=== PATIENT | female | born 1960 | race Caucasian/White ===

== ENCOUNTER 2016-08-03 14:10 | Emergency (ER) | payer OTHER ==
--- NOTE | 2016-08-03 16:23 | ED NURSING NOTES ---
Clinical Report - Nurses [place] [address] [place] [address] 08/03/2016 14:15 Patient: EDUARDO OLIVEIRA TRIAGE Triage time 14:30. Acuity: LEVEL 3. Chief Complaint: FATIGUE, HEADACHE and JOINT PAIN. Alert. No acute distress. MICHAEL COMA SCORE: [place] Coma Scale: 15- eyes open spontaneously (4); best verbal response- oriented x 4 (5); best motor response- obeys commands (6). --14:40 Nuzhat Mendoza R.N. 14:30 08/03/16. BP: 144/70. HR: 65. RR: 18. O2 saturation: 99% on room air. Temp: 98 F (oral). Pain level now: 0/10. --14:40 Nuzhat Mendoza R.N. Weight: 105.2 kg stated. Height/Length: 66 inches Per Patient. BMI: 37.5. --14:37 Nuzhat Mendoza R.N. Medications Pantoprazole Sodium Oral 20 mg, daily. --14:38 Nuzhat Mendoza R.N. ASA Oral 81 mg, daily. --14:39 Nuzhat Mendoza R.N. Sucralfate Oral 1 gm, 4x a day. --14:39 Nuzhat Mednoza R.N. Medication/allergy information source: the patient's pill bottles. --14:40 Nuzhat Mendoza R.N. Allergies No Known Drug Allergy. --14:32 Nuzhat Mendoza R.N. History Arrived by private vehicle. Historian: patient and family. Accompanied by family. Primary physician (Sneha - in [place]). Onset. (headache - about 1 week; rash - about 1 1/2 weeks). SOCIAL HX: Smoker- current status unknown (no). Occasional alcohol use. History of drug use: marijuana. FALL RISK ASSESSMENT: Fall risk assessment completed. No fall risk identified. FUNCTIONAL ASSESSMENT: Functional assessment performed: requires assistance with the activities of daily living. LEARNING NEEDS ASSESSMENT: A learning needs assessment was performed. Factors affecting the patient's ability to learn include cognitive limitations. --14:40 Nuzhat Mendoza R.N. PROBLEMS: Gastroesophageal Reflux Disease. Bronchitis. Bipolar Disorder. Anxiety Reaction. --14:35 Nuzhat Mendoza R.N. ADDITIONAL SURGERIES: . Tubal Ligation. --14:35 Nuzhat Mendoza R.N. Assessment GENERAL / NEURO / PSYCH: Alert. Oriented X 4. Appears in no acute distress. Patient appears calm and cooperative. RESPIRATORY: Respirations not labored. SKIN: Skin is warm and dry. Generalized skin rash. --14:40 Nuzhat Mendoza R.N. Interventions ID band on patient. To treatment room. --14:40 Nuzhat Mendoza R.N. PHYSICAL ASSESSMENT 14:43 08/03/16. Ambulatory to room. Patient gowned. GENERAL / NEURO / PSYCH: Alert. Appears in no acute distress. RESPIRATORY: Respirations not labored. SKIN: Skin is warm and dry. Generalized skin rash. --14:43 Nuzhat Mendoza R.N. NURSING PROGRESS NOTES 14:43 sister at bedside. Patient gowned. Head of bed elevated. Call light placed in reach. Side rails up x 1. Bed placed in lowest position. Brakes of bed on. --14:44 Nuzhat Mendoza R.N. 15:31 08/03/2016 Two (2) unsuccessful IV access attempts. --15:36 Joanie Chacon R.N. 1535. Patient ID band checked for patient name and birthdate: family confirmed. Blood samples drawn by lab per protocol ; labeled in presence of the patient and sent to lab: rainbow set: blood culture (1st set). --16:03 Joanie Chacon R.N. 16:00. Patient ID band checked for patient name and birthdate. Blood samples drawn by lab per protocol ; labeled in presence of the patient: blood culture (2nd set). Blood samples not sent to lab. ( lab here for additional lab draw. unable to get IV -- ERNP notified). --16:04 Joanie Chacon R.N. 16:30. ( Pt given po fluids per ERNP). --16:45 Joanie Chacon R.N. DISPOSITION / DISCHARGE 16:35. Condition at departure: unchanged and stable. Discharge instructions provided and reviewed with the family. Reviewed medication(s) (betamethisone cream BID). Reviewed referrals ([facility] in 3 days). Family verbalized understanding. Written instructions provided in Chinese. The patient was discharged home and accompanied by family. She left the Emergency Department ambulatory and via private vehicle. Driving (sister). --16:48 Joanie Chacon R.N. 16:35 08/03/16. BP: 140/72. HR: 70. RR: 16. O2 saturation: 100%. Temp: deferred. Pain level now: 0/10. --16:48 Joanie Chacon R.N. Locked/Released at 08/03/2016 17:02 by Joanie Chacon R.N.
--- NOTE | 2016-08-03 16:23 | ED ORDER SUMMARY ---
..... Patient: EDUARDO OLIVEIRA OrderSheet [facility] VisitID: [id number] [place] [address] 55y, F Registration Date/Time: 08/03/2016 ORDER SHEET Weight: 105.2 kg (stated) Allergies: No Known Drug Allergy GENERAL ORDERS: Blood Culture (No) (N/A) Urgent (15:16 08/03/2016 HBivens A.R.N.P.) (Ack 15:23 KHoerner) (16:03 DDean R.N.) CBC w Diff Urgent (15:17 08/03/2016 HBivens A.R.N.P.) (Ack 15:23 KHoerner) (16:03 DDean R.N.) CMP Urgent (15:17 08/03/2016 HBivens A.R.N.P.) (Ack 15:23 KHoerner) (16:03 DDean R.N.) CRP Urgent (15:17 08/03/2016 HBivens A.R.N.P.) (Ack 15:23 KHoerner) (16:03 DDean R.N.) Lactate, Serum Urgent (15:17 08/03/2016 HBivens A.R.N.P.) (Ack 15:23 KHoerner) (16:03 DDean R.N.) MEDICATION ORDERS: IV FLUIDS: IV Saline Lock (15:17 08/03/2016 HBivens A.R.N.P.) (Ack 15:18 DDean R.N.) (Cancelled: Other16:27 DDean R.N.) ORDER SHEET NOTES: [Electronically signed by Linh Mccurdy.R.N.PTeetee (16:59 08/03/2016)] [Electronically signed by Joanie Chacon R.N. (17:02 08/03/2016)] [Electronically locked/signed by Joanie Chacon R.N. (17:02 08/03/2016)]
--- NOTE | 2016-08-03 16:23 | ED CLINICAL REPORT ---
Clinical Report - Physicians/Mid Levels [facility] [address] [place] [address] 08/03/2016 14:15 Patient: EDUARDO OLIVEIRA Time Seen: 1505; initial patient contact, initial documentation, patient care assumed. Arrived- By private vehicle. Historian- patient and sister. HISTORY OF PRESENT ILLNESS Chief Complaint: WEAKNESS. This started about 2 weeks ago and is still present. The patient has had weakness. No numbness, impaired speech or swallowing, visual disturbance or recent fall. No difficulty walking. (none). No dizziness, altered mental status, seizure or blackouts. Usually is alert and oriented X3 and has normal mobility. (sister did some research online and wants sister tested for lyme disease, stating she has all the symptoms from weakness, to headache to rash, pt denies seeing or getting known tick on her or tick bite, sister says that she lives in dirty conditions with mice and that there were mice droppings everywhere, concerned she might also be sick from that). Similar symptoms previously: None. Recent medical care: Not recently seen/assessed. REVIEW OF SYSTEMS No fever, chest pain, difficulty breathing, cough or abdominal pain. No diarrhea, difficulty with urination or vomiting. She has had a headache. She has had a mild, itchy skin rash consisting of "redness" located on the back, chest and abdomen. No recent exposure to poison conrad or a sick person. All systems otherwise negative, except as recorded above. PAST HISTORY See nurses notes. ( PROBLEMS: Gastroesophageal Reflux Disease. Bronchitis. Bipolar Disorder. Anxiety Reaction. --14:35 Nuzhat Mendoza R.N. ADDITIONAL SURGERIES: . Tubal Ligation. --14:35 Nuzhat Mendoza R.N.). SOCIAL HISTORY Never smoker. Occasional alcohol use. History of occasional drug use. No recent travel. Is a local resident. FAMILY HISTORY Negative. ADDITIONAL NOTES The nursing notes have been reviewed with agreement regarding the chief complaint, HPI, ROS, PMH and patient medications and allergies. PHYSICAL EXAM Vital Signs: 08/03/2016 14:30 BP: 144/70. HR: 65. RR: 18. O2 saturation: 99%. Temp: 98 F. Pain level now: 0/10. Have been reviewed as normal and appear to be correct. Appearance: Alert. No acute distress. Head: Head atraumatic. Eyes: Pupils equal, round and reactive to light. ENT: Normal ENT inspection. Airway intact. Pharynx normal. Neck: Normal inspection. Neck supple. CVS: Normal heart rate and rhythm. Heart sounds normal. Pulses normal. Respiratory: No respiratory distress. Breath sounds normal. Abdomen: Soft and nontender. No organomegaly. Back: Normal inspection. Skin: Skin warm and dry. Normal skin color. Rash present. Normal skin turgor. Mild, well-demarcated, erythematous, macular, excoriated skin rash located on the chest, back and abdomen. No blanching, weeping or crusting skin rash. No skin rash with an erythematous base or a cobblestone appearance or consistent with erythema multiforme or migrans. Extremities: Extremities exhibit normal ROM. No lower extremity edema. Neuro: Alert. Oriented X 3. Mood/affect normal. Speech normal. Cranial nerves normal (as tested). No cerebellar findings. No motor deficit. No sensory deficit. LABS, X-RAYS, AND EKG Laboratory Tests: CBC w Diff: (ALBERTA: 08/03/2016 15:45) ( MsgRcvd 08/03/2016 15:56) Final results Test Result Flag Units (Reference) WHITE BLOOD COUNT 7.4 K/uL (4.5-11.5) RED BLOOD COUNT 4.47 M/uL (4.00-5.20) HEMOGLOBIN 13.5 gm/dL (12.0-16.0) HEMATOCRIT 40.4 % (36.0-46.0) MEAN CELL VOLUME 90 fL (80-100) MEAN CORPUSCULAR HGB 30 pg (26-34) MEAN CORPUSCULAR HGB CONC 34 g/dL (31-37) RED CELL DISTRIBUTION WIDTH 14.5 % (11.6-14.8) PLATELET COUNT 251 K/uL (150-400) NEUTROPHIL % 59.3 % (50-75) LYMPH % 23.9 L % (25-40) MONO % 11.4 % (3-14) EOSINOPHIL % 4.9 H % (0-4) BASOPHIL % 0.5 % (0-2) Lactate, Serum: (ALBERTA: 08/03/2016 15:45) ( MsgRcvd 08/03/2016 16:16) Final results Test Result Flag Units (Reference) LACTIC ACID 1.1 mmol/L (0.4-2.0) CMP: (ALBERTA: 08/03/2016 15:45) ( MsgRcvd 08/03/2016 16:09) Final results Test Result Flag Units (Reference) GLUCOSE 101 mg/dL (70-110) BUN 28 H mg/dL (7-18) CREATININE 0.9 mg/dL (0.6-1.3) Estimated GFR >60 mL/min Estimated GFR- >60 mL/min Note: Persistent reduction over 3 months in eGFR<60 mL/min/1.73 m2 defines CKD. Patients with eGFR values>=60 mL/min/1.73 m2 may also have CKD if evidence ofpersistent proteinuria. Additional information may be foundat www.kidney.org. SODIUM 141 mmol/L (136-145) POTASSIUM 4.0 mmol/L (3.5-5.1) CHLORIDE 107 mmol/L (98-107) CARBON DIOXIDE 24 mmol/L (21-32) CALCIUM 8.5 mg/dL (8.5-10.1) TOTAL PROTEIN 7.1 g/dL (6.4-8.2) ALBUMIN 3.3 g/dL (3.3-5.0) BILIRUBIN, TOTAL 0.4 mg/dL (0.0-1.0) ALKALINE PHOSPHATASE 73 U/L (46-116) AST (SGOT) 25 U/L (15-37) ALT (SGPT) 32 U/L (12-78) C-REACTIVE PROTEIN 0.5 mg/dL (0.0-0.9) . PROGRESS AND PROCEDURES Course of Care: 08/03/2016 16:35 BP: 140/72. HR: 70. RR: 16. O2 saturation: 100%. Pain level now: 0/10. Vital Signs: have been reviewed as normal and appear to be correct. Patient counseled in person regarding the patient's stable condition, test results and diagnosis. 16:22. Differential Diagnosis: I considered endocrine etiology, hypoglycemia and Guillain-Canton syndrome as a possible cause of weakness in this patient. This is a partial list of diagnoses considered. Other possible considerations: lyme disease, rat/mouse fever, anemia, thyroid disease, ca, dehydration, substance abuse. Above considerations are based on history, physical exam and laboratory data. Differential diagnosis was discussed with patient and patient's family. Disposition: Discharged home in good and unchanged condition (16:23). Condition: good and stable. CLINICAL IMPRESSION Acute generalized weakness. Irritative contact dermatitis. INSTRUCTIONS Warnings: GENERAL WARNINGS: Return or contact your physician immediately if your condition worsens or changes unexpectedly, if not improving as expected, or if other problems arise. Specifically return if problem worsens. Prescription Medications: Betamethisone Diproprinate 60ml bottle apply bid to affected areas x 1 wk no refills. Follow-up: Follow up with your doctor in about three days even if well. Call for an appointment. Summary of care provided to patient. Understanding of the discharge instructions verbalized by patient. Follow-up with: Aaron Plascencia MD, Internal Medicine, , [place] [address] Follow up in about three days as needed. Call for an appointment. Summary of care provided to patient. (Electronically signed by Linh Mccurdy A.R.N.P. 08/03/2016 16:59)
--- NOTE | 2016-08-03 16:23 | ED ORDER SUMMARY ---
..... Patient: EDUARDO OLIVEIRA OrderSheet [facility] VisitID: [id number] [place] [address] 55y, F Registration Date/Time: 08/03/2016 ORDER SHEET Weight: 105.2 kg (stated) Allergies: No Known Drug Allergy GENERAL ORDERS: Blood Culture (No) (N/A) Urgent (15:16 08/03/2016 HBivens A.R.N.P.) (Ack 15:23 KHoerner) (16:03 DDean R.N.) CBC w Diff Urgent (15:17 08/03/2016 HBivens A.R.N.P.) (Ack 15:23 KHoerner) (16:03 DDean R.N.) CMP Urgent (15:17 08/03/2016 HBivens A.R.N.P.) (Ack 15:23 KHoerner) (16:03 DDean R.N.) CRP Urgent (15:17 08/03/2016 HBivens A.R.N.P.) (Ack 15:23 KHoerner) (16:03 DDean R.N.) Lactate, Serum Urgent (15:17 08/03/2016 HBivens A.R.N.P.) (Ack 15:23 KHoerner) (16:03 DDean R.N.) MEDICATION ORDERS: IV FLUIDS: IV Saline Lock (15:17 08/03/2016 HBivens A.R.N.P.) (Ack 15:18 DDean R.N.) (Cancelled: Other16:27 DDean R.N.) ORDER SHEET NOTES: [Electronically signed by Linh Mccurdy.R.N.PTeetee (16:59 08/03/2016)] [Electronically signed by Joanie Chacon R.N. (17:02 08/03/2016)] [Electronically locked/signed by Joanie Chacon R.N. (17:02 08/03/2016)]
--- NOTE | 2016-08-03 17:03 | ED MAR SUMMARY ---
..... Medication Administration Record [facility] [address] [place], [place] [id number] Patient: EDUARDO OLIVEIRA Visit ID: [id number] 55y, F Weight: 105.2 kg Height/Length: 66 in BMI: 37.5 ALLERGIES: No Known Drug Allergy
--- NOTE | 2016-08-03 17:03 | ED MAR SUMMARY ---
..... Medication Administration Record [facility] [address] [place], [place] [id number] Patient: EDUARDO OLIVEIRA Visit ID: [id number] 55y, F Weight: 105.2 kg Height/Length: 66 in BMI: 37.5 ALLERGIES: No Known Drug Allergy
--- NOTE | 2016-08-03 17:03 | ED MED RECONCILIATION SUMMARY ---
Patient: EDUARDO OLIVEIRA Medication Reconciliation Report [facility] VisitID: [id number] [address] [place] [address] 55y, F Registration Date/Time: 08/03/2016 Weight: 105.2 kg Height/Length: 66 in. BMI: 37.5 ALLERGIES: No Known Drug Allergy The patient's Home Medications are listed below: THE FOLLOWING MEDICATIONS NEED TO BE RECONCILED: ASA Oral 81 mg, daily Pantoprazole Sodium Oral 20 mg, daily Sucralfate Oral 1 gm, 4x a day The source(s) of the original Home Medication information: patient's pill bottles The following Medications were given to the patient in the Emergency Department: None. The following Medications were prescribed to the patient: Betamethisone [id number] bottleapply bid to affected areas x 1 wkno refills. -- Linh Mccurdy A.R.N.P.
--- NOTE | 2016-08-03 17:03 | ED DISCHARGE INSTRUCTIONS ---
Patient: EDUARDO OLIVEIRA General Instructions [facility] VisitID: [id number] [address] [place], [place] [id number] 55y, F Registration Date/Time: 08/03/2016 Acute generalized weakness. Irritative contact dermatitis. INSTRUCTIONS Warnings: GENERAL WARNINGS: Return or contact your physician immediately if your condition worsens or changes unexpectedly, if not improving as expected, or if other problems arise. Specifically return if problem worsens. Prescription Medications: Betamethisone Diproprinate 60ml bottle apply bid to affected areas x 1 wk no refills. Follow-up: Follow up with your doctor in about three days even if well. Call for an appointment. Summary of care provided to patient. Understanding of the discharge instructions verbalized by patient. Follow-up with: Aaron Plascencia MD, Internal Medicine, , [facility], [address] [place] [address] Follow up in about three days as needed. Call for an appointment. Summary of care provided to patient. ADDITIONAL INFORMATION Dermatitis (Non-Specific) Dermatitis is an inflammation of the skin. The exact cause of your rash is not certain. However, this rash does not appear to be an infection or contagious illness. Taking care of the rash at home should help relieve your symptoms. Home Care: Keep the areas of rash clean by washing it daily. This also helps to keep the skin moist. Use a neutral pH soap such as Dove or Lever 2000. Apply a moisturizing lotion after bathing to prevent dry skin. Avoid skin irritants (wool or silk clothing, grease, oils, some medicines, harsh soaps, and detergents). Wear absorbent, soft fabrics next to the skin rather than rough or scratchy materials. Unless another medicine was prescribed, you may use Hydrocortisone cream (which you can get without a prescription) to reduce the inflammation. Follow Up: Make an appointment with your doctor in the next 1 to 2 weeks if your symptoms do not improve with the above measures. Get Prompt Medical Attention if any of the following occur: Increasing area of redness or pain in the skin Yellow crusts or drainage from the rash Joint pain New rash that appears in other areas of the body Fever of 100.4F (38C) or higher, or as directed by your healthcare provider Weakness [Uncertain Cause] Based on your exam today, the exact cause of your weakness is not certain. However, your weakness does not seem to be a sign of a serious illness at this time. Sometimes the signs of a serious illness take more time to appear. Therefore, please watch for the warning signs listed below. Home Care: 1) Rest at home today. Do not over-exert yourself. 2) Take your medicine as prescribed. 3) For the next few days, drink extra fluids (unless your doctor wants you to restrict fluids for other reasons). Do not skip meals. Follow Up with your doctor or as advised if you are not starting to feel better within TWO days. Get Prompt Medical Attention if any of the following occur: Worsening of your symptoms Chest, arm, neck, jaw or upper back pain Dizziness or fainting Trouble breathing Unable to eat or drink normal amounts Nausea, frequent vomiting, frequent diarrhea Abdominal pain Numbness or weakness of the face, one arm or one leg Slurred speech, confusion, trouble speaking, walking or seeing Blood in vomit or stool (black or red color) Fever of 100.4 F (38 C) or higher, or as directed by your healthcare provider You have been given the following additional information: Dermatitis, Non-Specific Weakness, Unk Cause (Electronically signed by Linh Mccurdy A.R.N.P. 08/03/2016 16:59)
--- NOTE | 2016-08-03 17:03 | ED MED RECONCILIATION SUMMARY ---
Patient: EDUARDO OLIVEIRA Medication Reconciliation Report [facility] VisitID: [id number] [address] [place] [address] 55y, F Registration Date/Time: 08/03/2016 Weight: 105.2 kg Height/Length: 66 in. BMI: 37.5 ALLERGIES: No Known Drug Allergy The patient's Home Medications are listed below: THE FOLLOWING MEDICATIONS NEED TO BE RECONCILED: ASA Oral 81 mg, daily Pantoprazole Sodium Oral 20 mg, daily Sucralfate Oral 1 gm, 4x a day The source(s) of the original Home Medication information: patient's pill bottles The following Medications were given to the patient in the Emergency Department: None. The following Medications were prescribed to the patient: Betamethisone [id number] bottleapply bid to affected areas x 1 wkno refills. -- Linh Mccurdy A.R.N.P.
--- NOTE | 2016-08-03 17:03 | ED DISCHARGE INSTRUCTIONS ---
Patient: EDUARDO OLIVEIRA General Instructions [facility] VisitID: [id number] [address] [place], [place] [phone] 55y, F Registration Date/Time: 08/03/2016 Acute generalized weakness. Irritative contact dermatitis. INSTRUCTIONS Warnings: GENERAL WARNINGS: Return or contact your physician immediately if your condition worsens or changes unexpectedly, if not improving as expected, or if other problems arise. Specifically return if problem worsens. Prescription Medications: Betamethisone Diproprinate 60ml bottle apply bid to affected areas x 1 wk no refills. Follow-up: Follow up with your doctor in about three days even if well. Call for an appointment. Summary of care provided to patient. Understanding of the discharge instructions verbalized by patient. Follow-up with: Aaron Plascencia MD, Internal Medicine, , [facility], [address] [place] [address] Follow up in about three days as needed. Call for an appointment. Summary of care provided to patient. ADDITIONAL INFORMATION Dermatitis (Non-Specific) Dermatitis is an inflammation of the skin. The exact cause of your rash is not certain. However, this rash does not appear to be an infection or contagious illness. Taking care of the rash at home should help relieve your symptoms. Home Care: Keep the areas of rash clean by washing it daily. This also helps to keep the skin moist. Use a neutral pH soap such as Dove or Lever 2000. Apply a moisturizing lotion after bathing to prevent dry skin. Avoid skin irritants (wool or silk clothing, grease, oils, some medicines, harsh soaps, and detergents). Wear absorbent, soft fabrics next to the skin rather than rough or scratchy materials. Unless another medicine was prescribed, you may use Hydrocortisone cream (which you can get without a prescription) to reduce the inflammation. Follow Up: Make an appointment with your doctor in the next 1 to 2 weeks if your symptoms do not improve with the above measures. Get Prompt Medical Attention if any of the following occur: Increasing area of redness or pain in the skin Yellow crusts or drainage from the rash Joint pain New rash that appears in other areas of the body Fever of 100.4F (38C) or higher, or as directed by your healthcare provider Weakness [Uncertain Cause] Based on your exam today, the exact cause of your weakness is not certain. However, your weakness does not seem to be a sign of a serious illness at this time. Sometimes the signs of a serious illness take more time to appear. Therefore, please watch for the warning signs listed below. Home Care: 1) Rest at home today. Do not over-exert yourself. 2) Take your medicine as prescribed. 3) For the next few days, drink extra fluids (unless your doctor wants you to restrict fluids for other reasons). Do not skip meals. Follow Up with your doctor or as advised if you are not starting to feel better within TWO days. Get Prompt Medical Attention if any of the following occur: Worsening of your symptoms Chest, arm, neck, jaw or upper back pain Dizziness or fainting Trouble breathing Unable to eat or drink normal amounts Nausea, frequent vomiting, frequent diarrhea Abdominal pain Numbness or weakness of the face, one arm or one leg Slurred speech, confusion, trouble speaking, walking or seeing Blood in vomit or stool (black or red color) Fever of 100.4 F (38 C) or higher, or as directed by your healthcare provider You have been given the following additional information: Dermatitis, Non-Specific Weakness, Unk Cause (Electronically signed by Linh Mccurdy A.R.N.P. 08/03/2016 16:59)
== END 2016-08-03 16:35 | disposition home or self-care (01) ==
LOC: ED SRH 14:10
DX: R53.1 Weakness (principal); L24.9 Irritant contact dermatitis, unspecified cause; K21.9 Gastro-esophageal reflux disease without esophagitis; Z79.82 Long term (current) use of aspirin; Z79.899 Other long term (current) drug therapy
CPT/HCPCS: 90065; 90074; 90100; 91585; 92031; 95059

== ENCOUNTER 2016-10-09 18:18 | Emergency (ER) | payer OTHER ==
--- NOTE | 2016-10-09 20:22 | ED NURSING NOTES ---
Clinical Report - Nurses [address] [place] [address] 10/09/2016 18:20 Patient: EDUARDO OLIVEIRA TRIAGE Triage time 18:27. Acuity: LEVEL 4. Chief Complaint: FALL while walking, onto a concrete surface; slipped. Alert. No acute distress. QING COMA SCORE: Qing Coma Scale: 15- eyes open spontaneously (4); best verbal response- oriented x 4 (5); best motor response- obeys commands (6). --18:35 Nuzhat Mendoza R.N. 18:27 10/09/16. BP: 139/80. HR: 53. RR: 18. O2 saturation: 95% on room air. Temp: 97.6 F (oral). Pain level now: 03/09. --18:35 Nuzhat Mendoza R.N. Weight: 113.3 kg estimated. Height/Length: 64 inches Estimated. BMI: 42.9. --20:37 Oscar Gallego R.N. Medications Pantoprazole Sodium Oral 20 mg, daily. Sucralfate Oral 1 gm, 4x a day. --18:31 Nuzhat Mendoza R.N. Vitamins/Minerals Oral. --18:31 Nuzhat Mendoza R.N. Medication/allergy information source: the patient. --18:35 Nuzhat Mendoza R.N. Allergies No Known Drug Allergy. --18:31 Nuzhat Mendoza R.N. History Arrived by private vehicle. Historian: patient. Accompanied by friend. Primary physician (Paul). Location of injuries: right leg. This occurred (at about 1600). Occurred at a store. ( 20+ years ago, she had surgery on the right ankle). No loss of consciousness. SOCIAL HX: Never smoker. History of drug use: marijuana. No alcohol use. LEARNING NEEDS ASSESSMENT: The learning needs assessment revealed no barriers. FALL RISK ASSESSMENT: Fall risk assessment completed. Risk factors identified include patient history of fall and impairment of mobility. FUNCTIONAL ASSESSMENT: Functional assessment performed: requires assistance with the activities of daily living; uses walker- this mobility impairment is an ongoing problem. --18:35 Nuzhat Mendoza R.N. PROBLEMS: Skin Rash. Weakness. Gastroesophageal Reflux Disease. Bronchitis. Bipolar Disorder. Anxiety Reaction. --18:31 Nuzhat Mendoza R.N. ADDITIONAL SURGERIES: . Tubal Ligation. --18:31 Nuzhat Mendoza R.N. Assessment GENERAL / NEURO / PSYCH: Alert. Oriented X 4. Appears in no acute distress. Patient appears calm and cooperative. RESPIRATORY: Respirations not labored. SKIN: Skin is warm and dry. --18:35 Nuzhat Mendoza R.N. Interventions ID band on patient. To treatment room. --18:35 Nuzhat Mendoza R.N. PHYSICAL ASSESSMENT 18:39 10/09/16. Ambulatory to room. Patient gowned. GENERAL / NEURO / PSYCH: Alert. Oriented X 4. Appears in no acute distress. RESPIRATORY: Respirations not labored. EXTREMITIES: Right leg: (pt c/o "severe" pain, was able to get out of WC and amb to the bed). SKIN: Skin is warm and dry. --18:39 Nuzhat Mendoza R.N. NURSING PROGRESS NOTES 18:39 10/09/16. Patient gowned. Call light placed in reach. Side rails up x 1. Bed placed in lowest position. Brakes of bed on. --18:39 Nuzhat Mendoza R.N. 18:39 states she "has a plate in that leg" and she thinks "the plate shifted". --18:40 Nuzhat Mendoza R.N. ( Report received from Nuzhat Rodriguez RN). --19:05 Oscar Gallego R.N. ( Patient resting in bed playing with cellphone, awake and alert, visitors of patient at her bedside.). --19:06 Oscar Gallego R.N. 19:42 10/09/2016 Hydrocodone-APAP (Hydrocodone-Acetaminophen) PO 5/325 mg Tablets 1 tab given. Allergies verified, confirmed 5 rights and sedative warning given to the patient. --19:42 Oscar Gallego R.N. ( INTERN PRODUCT MARKETING MANAGER with patient.). --20:20 Oscar Gallego R.N. ( Mekhi wrap applied to patient's right ankle, sensation color and circulation present and WNL distal to mekhi mekhi wrap.). --20:33 Oscar Gallego R.N. DISPOSITION / DISCHARGE Departure time: 20:34. Condition at departure: stable. Learning barriers present. Ability to learn limited by intellectual disability. Discharge instructions provided and reviewed with the patient and family. Reviewed warnings. Reviewed medication(s) side effects, precautions, dosing and course information. Prescription(s) given to the patient. Treatments reviewed. Reviewed referrals for followup. Patient and family verbalized understanding. Written instructions provided in Syriac. ( Sister of patient states that she is driving the patient home.). The patient was discharged home and accompanied by family. She left the Emergency Department ambulatory and via private vehicle. Family member driving. FALL RISK ASSESSMENT: Fall risk assessment completed. No fall risk identified. --20:36 Oscar Gallego R.N. 20:33 10/09/16. BP: 139/65. HR: 56. RR: 20 (regular and unlabored). O2 saturation: 100% on room air. Pain level now: 10. --20:36 Oscar Gallego R.N. Fall risk assessment completed. Risk factors identified include patient history of fall. --20:37 Oscar Gallego R.N. Locked/Released at 10/09/2016 20:38 by Oscar Gallego R.N.
--- NOTE | 2016-10-09 20:22 | ED CLINICAL REPORT ---
Clinical Report - Physicians/Mid Levels [facility] [address] [place] [address] 10/09/2016 18:20 Patient: EDUARDO OLIVEIRA Time Seen: 18:48; initial patient contact, initial documentation, patient care assumed. Arrived- By private vehicle. Historian- patient. HISTORY OF PRESENT ILLNESS Location of injuries- right ankle. Chief Complaint: FALL. The injury occurred today. (store). Fell while walking and landed on a concrete surface; slipped. The patient complains of moderate pain. No blow to the head, neck pain, loss of consciousness or seizure. Not dazed. REVIEW OF SYSTEMS The patient complains of pain on weight bearing. No numbness, chest pain, difficulty breathing, weakness or abdominal pain. No laceration. All systems otherwise negative, except as recorded above. PAST HISTORY See nurses notes. previous ankle surgery PROBLEMS: Skin Rash. Weakness. Gastroesophageal Reflux Disease. Bronchitis. Bipolar Disorder. Anxiety Reaction. --18:31 Nuzhat Mendoza R.N. ADDITIONAL SURGERIES: . Tubal Ligation. --18:31 Nuzhat Mendoza R.N. SOCIAL HISTORY Never smoker. History of occasional drug use: marijuana. No alcohol use. No recent travel. Is a local resident. FAMILY HISTORY No significant family medical history. ADDITIONAL NOTES The nursing notes have been reviewed with agreement regarding the chief complaint, HPI, ROS, PMH and patient medications and allergies. PHYSICAL EXAM Vital Signs: 10/09/2016 18:27 BP: 139/80. HR: 53. RR: 18. O2 saturation: 95%. Temp: 97.6 F. Pain level now: 03/09. Have been reviewed as abnormal and appear to be correct. Blood pressure normal. Bradycardic. Respiratory rate normal. Temperature normal. Oxygen saturation normal. Appearance: Alert. Oriented X3. No acute distress. Head: Head non-tender. No swelling of head. Eyes: Pupils equal, round and reactive to light. EOM intact. ENT: No dental injury. Pharynx normal. Neck: Painless ROM. Non-tender. Respiratory: Chest nontender. Back: No tenderness. ROM normal. Skin: Skin intact. Skin warm and dry. Normal skin color. Normal skin turgor. Extremities: Abnormal inspection. Extremities not atraumatic. Pelvis stable. Right ankle: mild tenderness localized to the lateral ligaments. Limited ROM (diminished plantar flexion, dorsiflexion, inversion and eversion). Neurovascular intact distally. No ligamentous laxity present. No joint effusion. No erythema, swelling, laceration, abrasion or ecchymosis. No puncture wound, foreign body or deformity. No lower extremity edema. Neuro: Oriented X 3. No motor deficit. No sensory deficit. LABS, X-RAYS, AND EKG X-Rays: X-rays are normal and reveal no acute disease (reviewed by dr robles). Right ankle negative. The X-rays were independently viewed by me. PROGRESS AND PROCEDURES Patient and family counseled in person regarding the patient's stable condition, test results and diagnosis. 20:21. Differential Diagnosis: Other possible considerations: ankle fx vs sprain. Above considerations are based on history, physical exam, reassessment and X-Ray data. Differential diagnosis was discussed with patient and patient's family. Disposition: Discharged home in good and improved condition (20:21). Condition: good and stable. CLINICAL IMPRESSION Sprain of the tibiofibular ligament of the right ankle. INSTRUCTIONS Apply ice for 20 minutes four times a day for two days until better. Don't apply ice directly to skin. Wear elastic wrap (Emkhi wrap) as directed for one weeks until better. Elevate affected areas above chest level for two days until better. Warnings: GENERAL WARNINGS: Return or contact your physician immediately if your condition worsens or changes unexpectedly, if not improving as expected, or if other problems arise. worsening symptoms. Prescription Medications: Ultram 50 mg tablets: take 1-2 orally every 6 hours as needed for pain. Dispense twenty (20). No refills. Substitution is permissible. Follow-up: Follow up with your doctor in about one week as needed. Call for an appointment. Summary of care provided to patient. Understanding of the discharge instructions verbalized by patient. (Electronically signed by Linh Mccurdy A.R.N.P. 10/09/2016 20:42)
--- NOTE | 2016-10-09 20:22 | ED ORDER SUMMARY ---
..... Patient: EDUARDO OLIVEIRA OrderSheet [facility] VisitID: [id number] [address] [place] [address] 55y, F Registration Date/Time: 10/09/2016 ORDER SHEET Weight: 113.3 kg (estimated) Allergies: No Known Drug Allergy GENERAL ORDERS: Ankle 3 or 4V Right Urgent (19:03 10/09/2016 HBivens A.R.N.P.) (Ack 19:04 IJurca ER Tech1) (19:18 CHagarvin ER Repack Room Worker) Mekhi Wrap (20:21 10/09/2016 HBivens A.R.N.P.) (Ack 20:21 DDavis R.N.) (20:32 DDavis R.N.) MEDICATION ORDERS: Hydrocodone-APAP PO 5/325 mg (NOW, HIGH ALERT MEDICATION) (19:37 10/09/2016 HBivens A.R.N.P.) (19:42 DDavis R.N.) IV FLUIDS: ORDER SHEET NOTES: [Electronically signed by Oscar Gallego R.N. (20:38 10/09/2016)] [Electronically signed by Linh MccurdyR.N.P. (20:42 10/09/2016)] [Electronically locked/signed by Oscar Gallego R.N. (20:38 10/09/2016)]
--- NOTE | 2016-10-09 20:22 | ED NURSING NOTES ---
Clinical Report - Nurses [address] [place] [address] 10/09/2016 18:20 Patient: EDUARDO OLIVEIRA TRIAGE Triage time 18:27. Acuity: LEVEL 4. Chief Complaint: FALL while walking, onto a concrete surface; slipped. Alert. No acute distress. QING COMA SCORE: Qing Coma Scale: 15- eyes open spontaneously (4); best verbal response- oriented x 4 (5); best motor response- obeys commands (6). --18:35 Nuzhat Mendoza R.N. 18:27 10/09/16. BP: 139/80. HR: 53. RR: 18. O2 saturation: 95% on room air. Temp: 97.6 F (oral). Pain level now: 03/09. --18:35 Nuzhat Mendoza R.N. Weight: 113.3 kg estimated. Height/Length: 64 inches Estimated. BMI: 42.9. --20:37 Oscar Gallego R.N. Medications Pantoprazole Sodium Oral 20 mg, daily. Sucralfate Oral 1 gm, 4x a day. --18:31 Nuzhat Mendoza R.N. Vitamins/Minerals Oral. --18:31 Nuzhat Mendoza R.N. Medication/allergy information source: the patient. --18:35 Nuzhat Mendoza R.N. Allergies No Known Drug Allergy. --18:31 Nuzhat Mendoza R.N. History Arrived by private vehicle. Historian: patient. Accompanied by friend. Primary physician (Paul). Location of injuries: right leg. This occurred (at about 1600). Occurred at a store. ( 20+ years ago, she had surgery on the right ankle). No loss of consciousness. SOCIAL HX: Never smoker. History of drug use: marijuana. No alcohol use. LEARNING NEEDS ASSESSMENT: The learning needs assessment revealed no barriers. FALL RISK ASSESSMENT: Fall risk assessment completed. Risk factors identified include patient history of fall and impairment of mobility. FUNCTIONAL ASSESSMENT: Functional assessment performed: requires assistance with the activities of daily living; uses walker- this mobility impairment is an ongoing problem. --18:35 Nuzhat Mendoza R.N. PROBLEMS: Skin Rash. Weakness. Gastroesophageal Reflux Disease. Bronchitis. Bipolar Disorder. Anxiety Reaction. --18:31 Nuzhat Mendoza R.N. ADDITIONAL SURGERIES: . Tubal Ligation. --18:31 Nuzhat Mendoza R.N. Assessment GENERAL / NEURO / PSYCH: Alert. Oriented X 4. Appears in no acute distress. Patient appears calm and cooperative. RESPIRATORY: Respirations not labored. SKIN: Skin is warm and dry. --18:35 Nuzhat Mendoza R.N. Interventions ID band on patient. To treatment room. --18:35 Nuzhat Mendoza R.N. PHYSICAL ASSESSMENT 18:39 10/09/16. Ambulatory to room. Patient gowned. GENERAL / NEURO / PSYCH: Alert. Oriented X 4. Appears in no acute distress. RESPIRATORY: Respirations not labored. EXTREMITIES: Right leg: (pt c/o "severe" pain, was able to get out of WC and amb to the bed). SKIN: Skin is warm and dry. --18:39 Nuzhat Mendoza R.N. NURSING PROGRESS NOTES 18:39 10/09/16. Patient gowned. Call light placed in reach. Side rails up x 1. Bed placed in lowest position. Brakes of bed on. --18:39 Nuzhat Mendoza R.N. 18:39 states she "has a plate in that leg" and she thinks "the plate shifted". --18:40 Nuzhat Mendoza R.N. ( Report received from Nuzhat Rodriguez RN). --19:05 Oscar Gallego R.N. ( Patient resting in bed playing with cellphone, awake and alert, visitors of patient at her bedside.). --19:06 Oscar Gallego R.N. 19:42 10/09/2016 Hydrocodone-APAP (Hydrocodone-Acetaminophen) PO 5/325 mg Tablets 1 tab given. Allergies verified, confirmed 5 rights and sedative warning given to the patient. --19:42 Oscar Gallego R.N. ( RECYCLABLE MATERIALS COLLECTOR with patient.). --20:20 Oscar Gallego R.N. ( Mekhi wrap applied to patient's right ankle, sensation color and circulation present and WNL distal to mekhi mekhi wrap.). --20:33 Oscar Gallego R.N. DISPOSITION / DISCHARGE Departure time: 20:34. Condition at departure: stable. Learning barriers present. Ability to learn limited by intellectual disability. Discharge instructions provided and reviewed with the patient and family. Reviewed warnings. Reviewed medication(s) side effects, precautions, dosing and course information. Prescription(s) given to the patient. Treatments reviewed. Reviewed referrals for followup. Patient and family verbalized understanding. Written instructions provided in Slovenian. ( Sister of patient states that she is driving the patient home.). The patient was discharged home and accompanied by family. She left the Emergency Department ambulatory and via private vehicle. Family member driving. FALL RISK ASSESSMENT: Fall risk assessment completed. No fall risk identified. --20:36 Oscar Gallego R.N. 20:33 10/09/16. BP: 139/65. HR: 56. RR: 20 (regular and unlabored). O2 saturation: 100% on room air. Pain level now: 10. --20:36 Oscar Gallego R.N. Fall risk assessment completed. Risk factors identified include patient history of fall. --20:37 Oscar Gallego R.N. Locked/Released at 10/09/2016 20:38 by Oscar Gallego R.N.
--- NOTE | 2016-10-09 20:22 | ED CLINICAL REPORT ---
Clinical Report - Physicians/Mid Levels [facility] [address] [place] [address] 10/09/2016 18:20 Patient: EDUARDO OLIVEIRA Time Seen: 18:48; initial patient contact, initial documentation, patient care assumed. Arrived- By private vehicle. Historian- patient. HISTORY OF PRESENT ILLNESS Location of injuries- right ankle. Chief Complaint: FALL. The injury occurred today. (store). Fell while walking and landed on a concrete surface; slipped. The patient complains of moderate pain. No blow to the head, neck pain, loss of consciousness or seizure. Not dazed. REVIEW OF SYSTEMS The patient complains of pain on weight bearing. No numbness, chest pain, difficulty breathing, weakness or abdominal pain. No laceration. All systems otherwise negative, except as recorded above. PAST HISTORY See nurses notes. previous ankle surgery PROBLEMS: Skin Rash. Weakness. Gastroesophageal Reflux Disease. Bronchitis. Bipolar Disorder. Anxiety Reaction. --18:31 Nuzhat Mendoza R.N. ADDITIONAL SURGERIES: . Tubal Ligation. --18:31 Nuzhat Mendoza R.N. SOCIAL HISTORY Never smoker. History of occasional drug use: marijuana. No alcohol use. No recent travel. Is a local resident. FAMILY HISTORY No significant family medical history. ADDITIONAL NOTES The nursing notes have been reviewed with agreement regarding the chief complaint, HPI, ROS, PMH and patient medications and allergies. PHYSICAL EXAM Vital Signs: 10/09/2016 18:27 BP: 139/80. HR: 53. RR: 18. O2 saturation: 95%. Temp: 97.6 F. Pain level now: 03/09. Have been reviewed as abnormal and appear to be correct. Blood pressure normal. Bradycardic. Respiratory rate normal. Temperature normal. Oxygen saturation normal. Appearance: Alert. Oriented X3. No acute distress. Head: Head non-tender. No swelling of head. Eyes: Pupils equal, round and reactive to light. EOM intact. ENT: No dental injury. Pharynx normal. Neck: Painless ROM. Non-tender. Respiratory: Chest nontender. Back: No tenderness. ROM normal. Skin: Skin intact. Skin warm and dry. Normal skin color. Normal skin turgor. Extremities: Abnormal inspection. Extremities not atraumatic. Pelvis stable. Right ankle: mild tenderness localized to the lateral ligaments. Limited ROM (diminished plantar flexion, dorsiflexion, inversion and eversion). Neurovascular intact distally. No ligamentous laxity present. No joint effusion. No erythema, swelling, laceration, abrasion or ecchymosis. No puncture wound, foreign body or deformity. No lower extremity edema. Neuro: Oriented X 3. No motor deficit. No sensory deficit. LABS, X-RAYS, AND EKG X-Rays: X-rays are normal and reveal no acute disease (reviewed by dr robles). Right ankle negative. The X-rays were independently viewed by me. PROGRESS AND PROCEDURES Patient and family counseled in person regarding the patient's stable condition, test results and diagnosis. 20:21. Differential Diagnosis: Other possible considerations: ankle fx vs sprain. Above considerations are based on history, physical exam, reassessment and X-Ray data. Differential diagnosis was discussed with patient and patient's family. Disposition: Discharged home in good and improved condition (20:21). Condition: good and stable. CLINICAL IMPRESSION Sprain of the tibiofibular ligament of the right ankle. INSTRUCTIONS Apply ice for 20 minutes four times a day for two days until better. Don't apply ice directly to skin. Wear elastic wrap (Mekhi wrap) as directed for one weeks until better. Elevate affected areas above chest level for two days until better. Warnings: GENERAL WARNINGS: Return or contact your physician immediately if your condition worsens or changes unexpectedly, if not improving as expected, or if other problems arise. worsening symptoms. Prescription Medications: Ultram 50 mg tablets: take 1-2 orally every 6 hours as needed for pain. Dispense twenty (20). No refills. Substitution is permissible. Follow-up: Follow up with your doctor in about one week as needed. Call for an appointment. Summary of care provided to patient. Understanding of the discharge instructions verbalized by patient. (Electronically signed by Linh Mccurdy A.R.N.P. 10/09/2016 20:42)
--- NOTE | 2016-10-09 20:22 | ED ORDER SUMMARY ---
..... Patient: EDUARDO OLIVEIRA OrderSheet [facility] VisitID: [id number] [address] [place] [address] 55y, F Registration Date/Time: 10/09/2016 ORDER SHEET Weight: 113.3 kg (estimated) Allergies: No Known Drug Allergy GENERAL ORDERS: Ankle 3 or 4V Right Urgent (19:03 10/09/2016 HBivens A.R.N.P.) (Ack 19:04 IJurca ER Tech1) (19:18 CHagarvin ER Director Outcomes) Mekhi Wrap (20:21 10/09/2016 HBivens A.R.N.P.) (Ack 20:21 DDavis R.N.) (20:32 DDavis R.N.) MEDICATION ORDERS: Hydrocodone-APAP PO 5/325 mg (NOW, HIGH ALERT MEDICATION) (19:37 10/09/2016 HBivens A.R.N.P.) (19:42 DDavis R.N.) IV FLUIDS: ORDER SHEET NOTES: [Electronically signed by Oscar Gallego R.N. (20:38 10/09/2016)] [Electronically signed by Linh MccurdyR.N.P. (20:42 10/09/2016)] [Electronically locked/signed by Oscar Gallego R.N. (20:38 10/09/2016)]
--- NOTE | 2016-10-09 20:42 | ED MED RECONCILIATION SUMMARY ---
Patient: EDUARDO OLIVEIRA Medication Reconciliation Report [facility] VisitID: [id number] [address] [place] [address] 55y, F Registration Date/Time: 10/09/2016 Weight: 113.3 kg Height/Length: 64 in. BMI: 42.9 ALLERGIES: No Known Drug Allergy The patient's Home Medications are listed below: THE FOLLOWING MEDICATIONS NEED TO BE RECONCILED: Pantoprazole Sodium Oral 20 mg, daily Sucralfate Oral 1 gm, 4x a day Vitamins/Minerals Oral The source(s) of the original Home Medication information: patient The following Medications were given to the patient in the Emergency Department: Hydrocodone-APAP [PO] PO 1 tab, administered: 10/09/2016 7:42:00 PM The following Medications were prescribed to the patient: Ultram 50 mg tablets: take 1-2 orally every 6 hours as needed for pain. Dispense twenty (20). No refills. Substitution is permissible. -- Linh Mccurdy A.R.N.P.
--- NOTE | 2016-10-09 20:42 | ED MAR SUMMARY ---
..... Medication Administration Record [facility] [address] [place] [address] Patient: EDUARDO OLIVEIRA Visit ID: [id number] 55y, F Weight: 113.3 kg Height/Length: 64 in BMI: 42.9 ALLERGIES: No Known Drug Allergy Given 19:42 10/09/2016 Oscar Gallego R.N. Medication Administered: HYDROCODONE-APAP [PO] (HYDROCODONE-ACETAMINOPHEN), Dose: 1 tab 5/325 mg Tablets PO. Medication Ordered: Hydrocodone-APAP PO 5/325 mg (NOW, HIGH ALERT MEDICATION).
--- NOTE | 2016-10-09 20:42 | ED MAR SUMMARY ---
..... Medication Administration Record [facility] [address] [place] [address] Patient: EDUARDO OLIVEIRA Visit ID: [id number] 55y, F Weight: 113.3 kg Height/Length: 64 in BMI: 42.9 ALLERGIES: No Known Drug Allergy Given 19:42 10/09/2016 Oscar Gallego R.N. Medication Administered: HYDROCODONE-APAP [PO] (HYDROCODONE-ACETAMINOPHEN), Dose: 1 tab 5/325 mg Tablets PO. Medication Ordered: Hydrocodone-APAP PO 5/325 mg (NOW, HIGH ALERT MEDICATION).
--- NOTE | 2016-10-09 20:42 | ED MED RECONCILIATION SUMMARY ---
Patient: EDUARDO OLIVEIRA Medication Reconciliation Report [facility] VisitID: [id number] [address] [place] [address] 55y, F Registration Date/Time: 10/09/2016 Weight: 113.3 kg Height/Length: 64 in. BMI: 42.9 ALLERGIES: No Known Drug Allergy The patient's Home Medications are listed below: THE FOLLOWING MEDICATIONS NEED TO BE RECONCILED: Pantoprazole Sodium Oral 20 mg, daily Sucralfate Oral 1 gm, 4x a day Vitamins/Minerals Oral The source(s) of the original Home Medication information: patient The following Medications were given to the patient in the Emergency Department: Hydrocodone-APAP [PO] PO 1 tab, administered: 10/09/2016 7:42:00 PM The following Medications were prescribed to the patient: Ultram 50 mg tablets: take 1-2 orally every 6 hours as needed for pain. Dispense twenty (20). No refills. Substitution is permissible. -- Linh Mccurdy A.R.N.P.
--- NOTE | 2016-10-09 20:42 | ED DISCHARGE INSTRUCTIONS ---
Patient: EDUARDO OLIVEIRA General Instructions [facility] VisitID: [id number] [address] [place] [address] 55y, F Registration Date/Time: 10/09/2016 Sprain of the tibiofibular ligament of the right ankle. INSTRUCTIONS Apply ice for 20 minutes four times a day for two days until better. Don't apply ice directly to skin. Wear elastic wrap (Mekhi wrap) as directed for one weeks until better. Elevate affected areas above chest level for two days until better. Warnings: GENERAL WARNINGS: Return or contact your physician immediately if your condition worsens or changes unexpectedly, if not improving as expected, or if other problems arise. worsening symptoms. Prescription Medications: Ultram 50 mg tablets: take 1-2 orally every 6 hours as needed for pain. Dispense twenty (20). No refills. Substitution is permissible. Follow-up: Follow up with your doctor in about one week as needed. Call for an appointment. Summary of care provided to patient. Understanding of the discharge instructions verbalized by patient. ADDITIONAL INFORMATION Sprain, Ankle,With X-Ray A sprain is an injury to the ligaments or capsule that holds a joint together. There are no broken bones. Most sprains take from four to six weeks to heal. If the ligament is completely torn (severe sprain), it can take several months to recover. Mild to moderate sprains may be treated with an elastic wrap or an in-shoe splint to provide support and prevent re-injury. A mild sprain may not require any additional support. A severe sprain may require surgery to repair. Home care The following guidelines will help you care for your injury at home: Stay off the injured leg as much as possible until you can walk on it without pain. If you have a lot of pain with walking, crutches or a walker may be prescribed. (These can be rented or purchased at many pharmacies and surgical or orthopedic supply stores). Follow your doctor's advice regarding when to begin bearing weight on that leg. Keep your leg elevated to reduce pain and swelling. When sleeping, place a pillow under the injured leg. When sitting, support the injured leg so it is level with your waist. This is very important during the first 48 hours. Apply an ice pack (ice cubes in a plastic bag, wrapped in a towel) over the injured area for 20 minutes every 12 hours the first day. You can place the ice pack directly over the splint/cast. If you were given a boot, open it to apply the ice pack. Continue with ice packs 34 times a day for the next two days, then as needed for the relief of pain and swelling. You may use acetaminophen or ibuprofen to control pain, unless another pain medicine was prescribed. If you have chronic liver or kidney disease or ever had a stomach ulcer or GI bleeding, talk with your doctor before using these medicines. You may return to sports after healing, when you can run without pain. A sprained ankle is at risk for re-injury during the first six weeks. During that time, protect your ankle with an in-shoe splint that prevents tilting of your ankle from side to side. This is very important if you do active work or play sports during that time. Follow-up care Any X-rays you had today dont show any broken bones, breaks, or fractures. Sometimes fractures dont show up on the first X-ray. Bruises and sprains can sometimes hurt as much as a fracture. These injuries can take time to heal completely. If your symptoms dont improve or they get worse, talk with your doctor. You may need a repeat X-ray. When to seek medical care Get prompt medical attention if any of the following occur: The plaster cast or splint gets wet or soft The fiberglass cast or splint gets wet and does not dry for 24 hours Pain or swelling increases, or redness appears Toes become cold, blue, numb or tingly Re-injure your ankle Mekhi Wrap An "Mekhi Bandage" refers to any elastic bandage wrap (2-6" wide). This is used to apply support and compression to an arm or leg. It will help prevent or reduce swelling also. When applying the bandage, it should not be stretched too tightly. A tight Mekhi Wrap will reduce circulation and cause tingling or numbness in the hand or foot. It may increase the pain under the bandage. If you get these symptoms, remove the wrap and rest the limb. Symptoms should go away within 1-2 hours. Once symptoms go away, reapply the bandage with less stretch. If symptoms do not go away after 1-2 hours with the bandage off, call your doctor or return to this facility promptly. Tramadol Hydrochloride Oral tablet What is this medicine? TRAMADOL (TRA ma dole) is a pain reliever. It is used to treat moderate to severe pain in adults. How should I use this medicine? Take this medicine by mouth with a full glass of water. Follow the directions on the prescription label. If the medicine upsets your stomach, take it with food or milk. Do not take more medicine than you are told to take. Talk to your wire frame maker regarding the use of this medicine in children. Special care may be needed. What side effects may I notice from receiving this medicine? Side effects that you should report to your doctor or health child care coordinator as soon as possible: allergic reactions like skin rash, itching or hives, swelling of the face, lips, or tongue breathing difficulties, wheezing confusion itching light headedness or fainting spells redness, blistering, peeling or loosening of the skin, including inside the mouth seizures Side effects that usually do not require medical attention (report to your doctor or health child care coordinator if they continue or are bothersome): constipation dizziness drowsiness headache nausea, vomiting What may interact with this medicine? Do not take this medicine with any of the following medications: MAOIs like Carbex, Eldepryl, Marplan, Nardil, and Parnate This medicine may also interact with the following medications: alcohol or medicines that contain alcohol antihistamines benzodiazepines bupropion carbamazepine or oxcarbazepine clozapine cyclobenzaprine digoxin furazolidone linezolid medicines for depression, anxiety, or psychotic disturbances medicines for migraine headache like almotriptan, eletriptan, frovatriptan, naratriptan, rizatriptan, sumatriptan, zolmitriptan medicines for pain like pentazocine, buprenorphine, butorphanol, meperidine, nalbuphine, and propoxyphene medicines for sleep muscle relaxants naltrexone phenobarbital phenothiazines like perphenazine, thioridazine, chlorpromazine, mesoridazine, fluphenazine, prochlorperazine, promazine, and trifluoperazine procarbazine warfarin What if I miss a dose? If you miss a dose, take it as soon as you can. If it is almost time for your next dose, take only that dose. Do not take double or extra doses. Where should I keep my medicine? Keep out of the reach of children. Store at room temperature between 15 and 30 degrees C (59 and 86 degrees F). Keep container tightly closed. Throw away any unused medicine after the expiration date. What should I tell my health care provider before I take this medicine? They need to know if you have any of these conditions: brain tumor depression drug abuse or addiction head injury if you frequently drink alcohol containing drinks kidney disease or trouble passing urine liver disease lung disease, asthma, or breathing problems seizures or epilepsy suicidal thoughts, plans, or attempt; a previous suicide attempt by you or a family member an unusual or allergic reaction to tramadol, codeine, other medicines, foods, dyes, or preservatives or trying to get breast-feeding What should I watch for while using this medicine? Tell your doctor or health child care coordinator if your pain does not go away, if it gets worse, or if you have new or a different type of pain. You may develop tolerance to the medicine. Tolerance means that you will need a higher dose of the medicine for pain relief. Tolerance is normal and is expected if you take this medicine for a long time. Do not suddenly stop taking your medicine because you may develop a severe reaction. Your body becomes used to the medicine. This does NOT mean you are addicted. Addiction is a behavior related to getting and using a drug for a non-medical reason. If you have pain, you have a medical reason to take pain medicine. Your doctor will tell you how much medicine to take. If your doctor wants you to stop the medicine, the dose will be slowly lowered over time to avoid any side effects. You may get drowsy or dizzy. Do not drive, use machinery, or do anything that needs mental alertness until you know how this medicine affects you. Do not stand or sit up quickly, especially if you are an older patient. This reduces the risk of dizzy or fainting spells. Alcohol can increase or decrease the effects of this medicine. Avoid alcoholic drinks. You may have constipation. Try to have a bowel movement at least every 2 to 3 days. If you do not have a bowel movement for 3 days, call your doctor or health child care coordinator. Your mouth may get dry. Chewing sugarless gum or sucking hard candy, and drinking plenty of water may help. Contact your doctor if the problem does not go away or is severe. You have been given the following additional information: Sprain, Ankle, With X-Ray Mekhi Wrap Tramadol Hydrochloride Oral tablet (Electronically signed by Linh Mccurdy A.R.N.P. 10/09/2016 20:42)
--- NOTE | 2016-10-09 20:47 | DIAGNOSTIC IMAGING REPORT ---
PROCEDURE: XR ANKLE 3 OR 4 VIEWS - RIGHT INDICATION: TRAUMA/INJURY TECHNIQUE: Four views. COMPARISON: None. FINDINGS: Status post open reduction internal fixation of old healed right distal fibular shaft fracture transfixed with side plate and multiple screws. The rest of the osseous structures and joint spaces are normal. IMPRESSION: 1. Status post ORIF of right distal fibular shaft fracture (anatomic position). 2. Otherwise negative right ankle.
== END 2016-10-09 20:39 | disposition home or self-care (01) ==
LOC: ED SRH 18:18
DX: S93.431A Sprain of tibiofibular ligament of right ankle, initial encounter (principal); W01.0XXA Fall on same level from slipping, tripping and stumbling without subsequent striking against object, initial encounter; Y93.01 Activity, walking, marching and hiking; Y99.9 Unspecified external cause status; Y92.512 Supermarket, store or market as the place of occurrence of the external cause; Z79.899 Other long term (current) drug therapy